=== PATIENT | female | born 1995 | race Caucasian/White ===

== ENCOUNTER 2018-07-10 18:00 | Emergency (ER) | payer OTHER, BC ==
[2018-07-10] MEDS ORDERED: Sodium Chloride 0.9% 1000 ML 1,000 ML IV STA (18:31)
[2018-07-10] MEDS ORDERED: Sodium Chloride 0.9% 1000 ML 1,000 ML ONE (18:34)
--- NOTE | 2018-07-10 18:36 | ERPHSYRPT ---
- History of Present Illness Historian: patient Exam Limitations: no limitations Patient Subjective Stated Complaint: pt states she got an iud since february and she has had pain since. states pain has gotten worse in the last week and a half. states she has been having dark red bloody discharge for last week and a half. pt reports pain in lt lower abd and rt hip and lower back. Triage Nursing Assessment: pt alert and oriented, asnwers questions approp. pt ambualtory with steady gait noted. respirations nonlabored with lungs cta. skin pink warm and dry. sanitary napkin with dark red blood, pt c/o passing clots and shows this nurse some very small clots on toilet paper. Timing/Duration: day(s) (4-5 days) Activities at Onset: none Quality: cramping Abdominal Pain Onset Location: LUQ, flank (right flank) Pain Radiation: no radiation Severity of Pain-Max: moderate Severity of Pain-Current: moderate Modifying Factors: Worsens With: analgesics, antacids, breathing, coughing, defecating, eating, exercise, lying down, movement, palpation, rest, urinating, vomiting Associated Symptoms: back (right flank pain), No chest pain, No diaphoresis, No diarrhea, No fever/chills, No fatigue, No headache, No heartburn, No loss of appetite, No nausea, No neck pain, No rash, No shortness of breath, No syncope, No vomiting, No weakness Previous symptoms: no prior history Hx Tetanus, Diphtheria Vaccination/Date Given: Yes Hx Influenza Vaccination/Date Given: No Hx Pneumococcal Vaccination/Date Given: No Immunizations Up to Date: Yes <MEAGAN DUEÑAS - Last Filed: 07/10/18 19:03> <HOMER MORGAN - Last Filed: 07/10/18 21:55> - History of Present Illness Time Seen by Provider: 07/10/18 18:25 Physician History: 22-year-old white female arrives with complaint of left upper quadrant and right flank pain symptoms for 4-5 days. She also states that she's been having vaginal bleeding for about 14 days. Patient does state that she had an IUD D. placed in February and has had abdominal pain off and on since. No vomiting no diarrhea no dysuria.no vaginal discharge Past medical history includes asthma, arm fracture Past surgical history includes neck injury and elbow surgery as a child ( MEAGAN DUEÑAS) Allergies/Adverse Reactions: pertussis vaccine,fluid [Pertussis Vaccine,Fluid] Allergy (Intermediate, Verified 07/10/18 18:21) Difficulty Swallowing amoxicillin Allergy (Verified 07/10/18 18:21) Home Medications: Valacyclovir HCl [Valtrex] 0 mg PO DAILY 07/10/18 [History] - Review of Systems Constitutional: No Fever, No Chills Eyes: No Symptoms Ears, Nose, & Throat: No Symptoms Respiratory: No Cough, No Dyspnea Cardiac: No Chest Pain, No Edema, No Syncope Abdominal/Gastrointestinal: Abdominal Pain (lleft upper quadrant pain), No Nausea, No Vomiting, No Diarrhea, No Constipation, No Hematemesis, No Hematochezia, No Melena, No Appetite Changes Genitourinary Symptoms: Flank Pain (right flank pain), Vaginal Bleeding ( vaginal bleeding for 14 days), No Dysuria, No Frequency, No Hematuria, No Hesitancy, No Incontinence, No Urgency, No Urinary Retention, No Vaginal Discharge Musculoskeletal: Back Pain (right flank pain), No Arthralgias, No Neck Pain, No Deformity, No Fall, No Injury, No Joint Redness, No Joint Pain, No Joint Swelling, No Myalgias Skin: No Rash Neurological: No Dizziness, No Focal Weakness, No Sensory Changes Psychological: No Symptoms Endocrine: No Symptoms All Other Systems: Reviewed and Negative <MEAGAN DUEÑAS - Last Filed: 07/10/18 19:03> - Past Medical History Pertinent Past Medical History: No Neurological History: No Pertinent History ENT History: No Pertinent History Cardiac History: No Pertinent History Respiratory History: Asthma Endocrine Medical History: No Pertinent History Musculoskeletal History: No Pertinent History GI Medical History: No Pertinent History History: No Pertinent History Psycho-Social History: No Pertinent History Female Reproductive Disorders: No Pertinent History Other Medical History: BROKEN ARM - Past Surgical History Past Surgical History: Yes Neuro Surgical History: No Pertinent History Cardiac: No Pertinent History Respiratory: No Pertinent History Gastrointestinal: No Pertinent History Genitourinary: No Pertinent History Musculoskeletal: Orthopedic Surgery Female Surgical History: Section Other Surgical History: NECK INJURY AND ELBOW SURGERY A CHILD - Social History Smoking Status: Never smoker Exposure to second hand smoke: No Drug Use: none Patient Lives Alone: Yes - Female History Hx Last Menstrual Period: current Hx Now: No <SPENSERMEAGAN PEPE - Last Filed: 07/10/18 19:03> - Physical Exam General Appearance: mild distress, alert Eye Exam: PERRL/EOMI, eyes nml inspection Ears, Nose, Throat Exam: normal ENT inspection, pharynx normal, moist mucous membranes Neck Exam: normal inspection, non-tender, supple, full range of motion Respiratory Exam: normal breath sounds Cardiovascular Exam: regular rate/rhythm, normal heart sounds, capillary refill <2 sec Gastrointestinal/Abdomen Exam: soft, normal bowel sounds, tenderness (left upper quadrant tenderness), No distention, No mass, No guarding, No ecchymosis, No pulsatile mass, No rebound, No hepatomegaly, No organomegaly, No splenomegaly , No bruit, No other Back Exam: CVA tenderness (right flank tenderness), No vertebral tenderness, No rash, No decreased range of motion, No muscle spasm, No point tenderness Extremity Exam: normal inspection, normal range of motion, pelvis stable Neurologic Exam: alert, oriented x 3, cooperative, knockdown man II-XII nml as tested, normal mood/affect, nml cerebellar function, sensation nml, No motor deficits Skin Exam: normal color, warm, dry SpO2 Interpretation: normal (95%) SpO2: 95 <SPENSERMEAGAN PEPE - Last Filed: 07/10/18 19:03> - Nursing Vital Signs Nursing Vital Signs: Initial Vital Signs Temperature 98.7 F 07/10/18 18:04 Pulse Rate 78 07/10/18 18:04 Respiratory Rate 18 07/10/18 18:04 Blood Pressure 142/102 07/10/18 18:04 O2 Sat by Pulse Oximetry 95 07/10/18 18:04 Pain Scale Pain Intensity 5 - Course Nursing assessment & vital signs reviewed: Yes <HOMER MORGAN - Last Filed: 07/10/18 21:55> Ordered Tests: Active Orders 24 hr Category Date Time Status IV Insertion STAT Care 07/10/18 18:31 Active ABDOMEN AND PELVIS W/0 CONTRAS [CT] Stat Exams 07/10/18 20:52 Taken AMYLASE Stat Lab 07/10/18 18:40 Completed CBC W DIFF Stat Lab 07/10/18 18:40 Completed CMP Stat Lab 07/10/18 18:40 Completed HCG QUALITATIVE,SERUM Stat Lab 07/10/18 18:40 Completed LIPASE Stat Lab 07/10/18 18:40 Completed UA W/RFX UR CULTURE Stat Lab 07/10/18 18:40 Completed Medication Summary Discontinued Medications Generic Name Dose Route Start Last Admin Trade Name Sheeba PRN Reason Stop Dose Admin Azithromycin 1,000 mg 07/10/18 21:52 Zithromax 250 Mg Tablet PO 07/10/18 21:53 STAT ONE Sodium Chloride 1,000 mls @ 999 mls/hr 07/10/18 18:31 07/10/18 18:35 Sodium Chloride 0.9% 1000 Ml IV 07/10/18 19:31 999 mls/hr .Q1H1M STA Administration Sodium Chloride Confirm 07/10/18 18:34 Sodium Chloride 0.9% 1000 Ml Administered 07/10/18 18:35 Dose 1,000 mls @ ud .ROUTE .STK-MED ONE Lab/Rad Data: Laboratory Result Diagrams 07/10/18 18:40 07/10/18 18:40 Laboratory Results 07/10/18 07/10/18 07/10/18 Range/Units Unknown 18:40 18:40 WBC (4.0-10.5) K/mm3 RBC (4.1-5.4) M/mm3 Hgb (12.0-16.0) gm/dl Hct (35-47) % MCV (78-100) fl MCH (26-32) pg MCHC (32-36) g/dl RDW (11.5-14.0) % Plt Count (150-450) K/mm3 MPV (6-9.5) fl Gran % (36.0-66.0) % Eos # (Auto) (0-0.5) Absolute Lymphs (auto) (1.0-4.6) Absolute Monos (auto) (0.0-1.3) Lymphocytes % (24.0-44.0) % Monocytes % (0.0-12.0) % Eosinophils % (0.00-5.0) % Basophils % (0.0-0.4) % Absolute Granulocytes (1.4-6.9) Basophils # (0-0.4) Sodium (137-145) mmol/L Potassium (3.5-5.1) mmol/L Chloride (98-107) mmol/L Carbon Dioxide (22-30) mmol/L Anion Gap (5-15) MEQ/L BUN (7-17) mg/dL Creatinine (0.52-1.04) mg/dL Estimated GFR ML/MIN Glucose (74-106) mg/dL Calcium (8.4-10.2) mg/dL Total Bilirubin (0.2-1.3) mg/dL AST (14-36) U/L ALT (0-35) U/L Alkaline Phosphatase (38-126) U/L Serum Total Protein (6.3-8.2) g/dL Albumin (3.5-5.0) g/dL Amylase (30-110) U/L Lipase (23-300) U/L Serum , Qual NEGATIVE (Negative) Urine Color YELLOW (YELLOW) Urine Appearance CLEAR (CLEAR) Urine pH 6.0 (5-6) Ur Specific [place] 1.023 (1.005-1.025) Urine Protein NEGATIVE (Negative) Urine Ketones SMALL (NEGATIVE) Urine Blood MODERATE (0-5) Chris/ul Urine Nitrite NEGATIVE (NEGATIVE) Urine Bilirubin NEGATIVE (NEGATIVE) Urine Urobilinogen NEGATIVE (0-1) mg/dL Ur Leukocyte Esterase NEGATIVE (NEGATIVE) Urine WBC (Auto) 0-2 (0-5) /HPF Urine RBC (Auto) 11-15 (0-2) /HPF U Hyaline Cast (Auto) 0-2 (0-2) /LPF U Epithel Cells (Auto) NONE (FEW) /HPF Urine Bacteria (Auto) NONE (NEGATIVE) /HPF Urine Mucus (Auto) MANY (NEGATIVE) /HPF Urine Culture Reflexed NO (NO) Urine Glucose NEGATIVE (NEGATIVE) mg/dL Ur Chlamydia DNA Probe POSITIVE A (NEGATIVE) Urine GC DNA Probe NEGATIVE (NEGATIVE) 07/10/18 07/10/18 Range/Units 18:40 18:40 WBC 6.8 (4.0-10.5) K/mm3 RBC 4.83 (4.1-5.4) M/mm3 Hgb 13.4 (12.0-16.0) gm/dl Hct 39.6 (35-47) % MCV 82.0 (78-100) fl MCH 27.7 (26-32) pg MCHC 33.8 (32-36) g/dl RDW 13.6 (11.5-14.0) % Plt Count 379 (150-450) K/mm3 MPV 9.3 (6-9.5) fl Gran % 62.6 (36.0-66.0) % Eos # (Auto) 0.09 (0-0.5) Absolute Lymphs (auto) 2.10 (1.0-4.6) Absolute Monos (auto) 0.35 (0.0-1.3) Lymphocytes % 30.7 (24.0-44.0) % Monocytes % 5.1 (0.0-12.0) % Eosinophils % 1.3 (0.00-5.0) % Basophils % 0.3 (0.0-0.4) % Absolute Granulocytes 4.27 (1.4-6.9) Basophils # 0.02 (0-0.4) Sodium 140 (137-145) mmol/L Potassium 3.7 (3.5-5.1) mmol/L Chloride 107 (98-107) mmol/L Carbon Dioxide 22 (22-30) mmol/L Anion Gap 14.6 (5-15) MEQ/L BUN 11 (7-17) mg/dL Creatinine 0.59 (0.52-1.04) mg/dL Estimated GFR > 60.0 ML/MIN Glucose 89 (74-106) mg/dL Calcium 9.5 (8.4-10.2) mg/dL Total Bilirubin 0.50 (0.2-1.3) mg/dL AST 17 (14-36) U/L ALT 14 (0-35) U/L Alkaline Phosphatase 56 (38-126) U/L Serum Total Protein 7.8 (6.3-8.2) g/dL Albumin 4.6 (3.5-5.0) g/dL Amylase 58 (30-110) U/L Lipase 59 (23-300) U/L Serum , Qual (Negative) Urine Color (YELLOW) Urine Appearance (CLEAR) Urine pH (5-6) Ur Specific [place] (1.005-1.025) Urine Protein (Negative) Urine Ketones (NEGATIVE) Urine Blood (0-5) Chris/ul Urine Nitrite (NEGATIVE) Urine Bilirubin (NEGATIVE) Urine Urobilinogen (0-1) mg/dL Ur Leukocyte Esterase (NEGATIVE) Urine WBC (Auto) (0-5) /HPF Urine RBC (Auto) (0-2) /HPF U Hyaline Cast (Auto) (0-2) /LPF U Epithel Cells (Auto) (FEW) /HPF Urine Bacteria (Auto) (NEGATIVE) /HPF Urine Mucus (Auto) (NEGATIVE) /HPF Urine Culture Reflexed (NO) Urine Glucose (NEGATIVE) mg/dL Ur Chlamydia DNA Probe (NEGATIVE) Urine GC DNA Probe (NEGATIVE) - Progress Progress: improved <MEAGAN DUEÑAS - Last Filed: 07/10/18 19:03> - Progress Counseled pt/family regarding: lab results, diagnosis, need for follow-up, rad results <HOMER MORGAN - Last Filed: 07/10/18 21:55> - Progress Progress Note: 07/10/18 19:02 The patient's case has been discussed with Dr. Morgan. He will assume care of this patient secondary to shift change. (MEAGAN DUEÑAS) 07/10/18 21:53 ct abd/pelvis-mild diffuse fecal stasis; tiny right adnexal free fluid. ( HOMER MORGAN) <MEAGAN DUEÑAS - Last Filed: 07/10/18 19:03> - Departure Departure Disposition: Home Critical Care Time: No <HOMER MORGAN - Last Filed: 07/10/18 21:55> - Departure Clinical Impression: Abdominal pain, Chlamydia infection Condition: Stable Referrals: DOCTOR,NO FAMILY [Primary Care Provider] - Additional Instructions: drink plenty of fluids. avoid sexual intercourse for 7 days. notify partners of your infection.
[2018-07-10 18:42] LABS: BASOPHIL % 0.3 % (0.0-0.4); Basophil (Absolute #) 0.02 (0-0.4); Eosinophil % 1.3 % (0.00-5.0); Eosinophil (Absolute #) 0.09 (0-0.5); Granulocyte Absolute (ANC) 4.27 (1.4-6.9); Granulocytes % 62.6 % (36.0-66.0); Hematocrit 39.6 % (35-47); Hemoglobin 13.4 gm/dl (12.0-16.0); Lymphocytes % 30.7 % (24.0-44.0); Mean Corpuscular Hemoglobin 27.7 pg (26-32); Mean Corpuscular Hgb Concent. 33.8 g/dl (32-36); Mean Platelet Volume 9.3 fl (6-9.5); Monocyte (Absolute #) 0.35 (0.0-1.3); Monocytes % 5.1 % (0.0-12.0); Platelet Count 379 K/mm3 (150-450); Red Blood Count 4.83 M/mm3 (4.1-5.4); Red Cell Distribution Width 13.6 % (11.5-14.0); White Blood Count 6.8 K/mm3 (4.0-10.5)
[2018-07-10 18:57] LABS: Appearance CLEAR (CLEAR); Bilirubin NEGATIVE (NEGATIVE); Blood MODERATE Ery/ul (0-5); Glucose NEGATIVE (NEGATIVE); Hyaline Casts 0-2 /LPF (0-2); Ketones SMALL (NEGATIVE); Leukocyte Esterase NEGATIVE (NEGATIVE); Mucus MANY /HPF (NEGATIVE); Nitrite NEGATIVE (NEGATIVE); Protein,Urine Dip NEGATIVE (Negative); Specific Gravity 1.023 (1.005-1.025); Urobilinogen NEGATIVE mg/dL (0-1); WBC 0-2 /HPF (0-5)
[2018-07-10 18:58] LABS: ALBUMIN 4.6 g/dL (3.5-5.0); ALKALINE PHOSPHATASE 56 U/L (38-126); AMYLASE 58 U/L (30-110); ANION GAP 14.6 MEQ/L (5-15); BLOOD UREA NITROGEN 11 mg/dL (7-17); CHLORIDE 107 mmol/L (98-107); Calcium 9.5 mg/dL (8.4-10.2); Carbon Dioxide 22 mmol/L (22-30); Creatinine 1 0.59 mg/dL (0.52-1.04); Glucose 89 mg/dL (74-106); LIPASE 59 U/L (23-300); Potassium 3.7 mmol/L (3.5-5.1); SGOT/AST 17 U/L (14-36); SGPT/ALT 14 U/L (0-35); SODIUM 140 mmol/L (137-145); Total Protein 7.8 g/dL (6.3-8.2)
[2018-07-10 19:58] VITALS: O2SAT 100
[2018-07-10 21:12] LABS: CHLAMYDIA URINE POSITIVE (NEGATIVE); GC URINE NEGATIVE (NEGATIVE)
[2018-07-10] MEDS ORDERED: Zithromax 250 MG TABLET PO ONE (21:52)
[2018-07-10] MEDS ORDERED: Zithromax 250 MG TABLET ONE (22:03)
[2018-07-10 23:12] VITALS: BP 122/78; PULSE 72
--- NOTE | 2018-07-11 08:48 | XRAY ---
Indication: Left abdomen/flank pain. Vaginal bleeding. Multiple contiguous axial images obtained through the abdomen and pelvis without contrast as ordered. Comparison: None Lung bases are clear. Heart is not enlarged. Noncontrasted stomach and bowel loops appear nonobstructed. Normal appendix, best seen sagittal reformatted images. Tiny right adnexa free fluid presumed physiologic from rupture/leaking cyst. No free air. Spleen is enlarged measuring 13 cm in axial dimension. Uterus demonstrates fundal IUD. 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 Remaining liver, gallbladder, pancreas, spleen, adrenal glands, kidneys, ureters, bladder, uterus, and aorta appear unremarkable for noncontrast exam. Osseous structures intact. No ventral or inguinal hernias. Impression: 1. Tiny right adnexa free fluid probably physiologic. 2. 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 3. Remaining CT abdomen/pelvis without contrast exam is negative. CT DI 12.94
== END 2018-07-10 22:41 | disposition home or self-care (01) ==
LOC: ED 18:00
DX: R10.9 Unspecified abdominal pain (principal); A74.9 Chlamydial infection, unspecified
CPT/HCPCS: 36000; 36415; 74176; 80053; 81001; 81025; 82150; 83690; 85025; 87491; 87591; 96360; 99284; A9270-GY

== ENCOUNTER 2023-07-14 14:19 | Emergency (ER) | payer BC, MEDICAID ==
[2023-07-14 14:38] VITALS: RESP 17; TEMP 98; O2SAT 99
--- NOTE | 2023-07-14 15:09 | ERPHSYRPT ---
- History of Present Illness Time Seen by Provider: 07/14/23 14:55 Source: patient Exam Limitations: no limitations Patient Subjective Stated Complaint: C/O laceration to right hand. States she was attempting to open her child's toy with a pair of scissors and sliced her h and. States this happened approx 10 minutes prior to coming into the ER today. Triage Nursing Assessment: Patient ambulated back to ER holding a papertowel over the palm of her right hand. Towel removed. A laceration is present to her right palm measuring 1.4cm X 0.2cm. No active bleeding noted at this time. Physician History: Pt states about 45 minutes ago at home she was trying to cut a zip tie with scissors and lacerated her right palm. Last tetanus unknown. Allergies/Adverse Reactions: pertussis vaccine,fluid [Pertussis Vaccine,Fluid] Allergy (Intermediate, Verified 07/14/23 14:27) Difficulty Swallowing amoxicillin Allergy (Verified 07/14/23 14:27) Penicillins Allergy (Verified 07/14/23 14:27) Home Medications: Valacyclovir HCl [Valtrex] 500 mg PO DAILY 07/10/18 [History] Hx Tetanus, Diphtheria Vaccination/Date Given: (unsure about tetanus) Hx Influenza Vaccination/Date Given: No Hx Pneumococcal Vaccination/Date Given: No Immunizations Up to Date: Yes Travel Risk - International Travel Have you traveled outside of the country in past 3 weeks: No - Emerging Infectious Disease Are you exhibiting symptoms associated with any current EIDs: No - Review of Systems Skin: Other (laceration to right hand today) - Past Medical History Pertinent Past Medical History: Yes Neurological History: No Pertinent History ENT History: No Pertinent History Cardiac History: No Pertinent History Respiratory History: Asthma Endocrine Medical History: No Pertinent History Musculoskeletal History: No Pertinent History GI Medical History: No Pertinent History History: No Pertinent History Psycho-Social History: No Pertinent History Female Reproductive Disorders: No Pertinent History Other Medical History: BROKEN ARM - Past Surgical History Past Surgical History: Yes Neuro Surgical History: No Pertinent History Cardiac: No Pertinent History Respiratory: No Pertinent History Gastrointestinal: No Pertinent History Genitourinary: No Pertinent History Musculoskeletal: Orthopedic Surgery Female Surgical History: Section Other Surgical History: NECK INJURY AND ELBOW SURGERY A CHILD - Female History Hx Now: No - Social History Smoking Status: Never smoker Exposure to second hand smoke: No Drug Use: none Patient Lives Alone: Yes - Social Determinants of Health Will the patient participate in the screening: Declined to provide - Nursing Vital Signs Nursing Vital Signs: Initial Vital Signs Temperature 98 F 07/14/23 14:28 Pulse Rate 77 07/14/23 14:28 Respiratory Rate 17 07/14/23 14:28 Blood Pressure 154/108 07/14/23 14:28 O2 Sat by Pulse Oximetry 99 07/14/23 14:28 Pain Scale Pain Intensity 2 - Physical Exam General Appearance: alert Mental Status Exam: alert, cooperative Skin Exam: laceration (1.4 cm laceration to thenar aspect of right palm) SpO2 Interpretation: normal SpO2: 99 O2 Delivery: Room Air Procedures - Laceration/Wound Repair Right Hand Wound Location: Right, hand Wound Length (cm): 1.4 Wound's Depth, Shape: superficial Wound Explored: clean Hibiclens Prep: Yes Wound Repaired With: Dermabond - Course Nursing assessment & vital signs reviewed: Yes - Progress Progress: improved Counseled pt/family regarding: need for follow-up - Departure Departure Disposition: Home Clinical Impression: Laceration of right hand Condition: Stable Critical Care Time: No Referrals: DOCTOR,NO FAMILY [Primary Care Provider] - Follow up/PCP as directed Instructions: Laceration Repair With Glue (DC) Additional Instructions: Follow up with private doctor tomorrow.
[2023-07-14 15:21] VITALS: BP 147/83; PULSE 75
== END 2023-07-14 15:23 | disposition home or self-care (01) ==
LOC: ED 14:19
DX: S61.411A Laceration without foreign body of right hand, initial encounter (principal); W26.8XXA Contact with other sharp object(s), not elsewhere classified, initial encounter; Z79.899 Other long term (current) drug therapy
CPT/HCPCS: 12001; 99282